=== PATIENT | female | born 1995 | race Two or more races ===

== ENCOUNTER 2016-07-03 21:34 | Emergency (ER) | payer BC ==
[2016-07-03 21:42] VITALS: BP 133/78; PULSE 93; RESP 16; TEMP 98.1; O2SAT 98
--- NOTE | 2016-07-03 22:17 | EDPHY ---
H & P Stated Complaint: R thumb crush injury 06/29; increased swelling since yesterday Time Seen by Provider: 07/03/16 22:01 HPI/ROS: HPI The patient presents with right thumb pain which has been present for the last 4 days though getting progressively worse. It is associated with edema of her distal thumb. The pain has been constant, is throbbing, does not radiate. Four days ago, she slammed her thumb in a car door. Initially the pain was manageable, however it has gotten progressively worse. She does wear acrylic nails. REVIEW OF SYSTEMS Constitutional: No fever, no chills. Skin: No rashes. PMHx: Healthy PHYSICAL General Appearance: Alert, no distress Eyes: Pupils equal and round no pallor or injection ENT, Mouth: Mucous membranes moist Respiratory: Breathing comfortably Neurological: A&O, moves all extremities Skin: Warm and dry, no rashes Musculoskeletal: Neck is supple non tender Extremities: Right thumb- distal phalanx is edematous with ecchymoses surrounding the proximal nail fold, acrylic nail with nail [place] is in place Psychiatric: Patient is oriented X 3, there is no agitation Source: Patient Exam Limitations: No limitations - Personal History LMP (Females 10-55): 1-7 Days Ago Current Tetanus/Diphtheria Vaccine: Yes Current Tetanus Diphtheria and Acellular Pertussis (TDAP): Yes - Medical/Surgical History Hx Asthma: Yes Hx Chronic Respiratory Disease: No Hx Diabetes: No Hx Cardiac Disease: No Hx Renal Disease: No Hx Cirrhosis: No Hx Alcoholism: No Hx HIV/AIDS: No Hx Splenectomy or Spleen Trauma: No Other PMH: hx childhood asthma - Social History Smoking Status: Never smoked Constitutional: Initial Vital Signs Temperature (C) 36.7 C 07/03/16 21:35 Heart Rate 93 07/03/16 21:35 Respiratory Rate 16 07/03/16 21:35 Blood Pressure 133/78 H 07/03/16 21:35 O2 Sat (%) 98 07/03/16 21:35 O2 Delivery Mode Room Air Allergies/Adverse Reactions: No Known Allergies Allergy (Unverified 07/03/16 21:42) Home Medications: Medication Instructions Recorded Cephalexin [Keflex (*)] 500 mg PO Q6H #20 cap 07/03/16 [id number] 07/03/16 Medical Decision Making Procedures: Digital block of right thumb performed using lidocaine 1% total of 3 mL was injected into the palmar surface of her right thumb just proximal to the MCP joint. Subsequently, nail bed trephination performed initially using Bovie, then transitioning to 18 gauge needle because of some smoke with Bovie. Large volume of blood drained. Patient tolerated procedure well. Differential Diagnosis: This is a 21-year-old healthy female who presents 5 days after slamming her right thumb into a car door with increased swelling and pain over the last 1 day. Differential diagnosis includes subungual hematoma, distal phalanx fracture, paronychia, finger contusion. I am not able to visualize her nail bed because of the acrylic nail in place. It has nail [place] which is gel based and cannot be removed with acetone, thus I have no way of fully examining the nail bed. I am highly suspicious of subungual hematoma, thus I will perform a digital block and trephination. Departure - Departure Disposition: Home, Routine, Self-Care Clinical Impression: Subungual hematoma Condition: Good Instructions: Subungual Hematoma (ED) Additional Instructions: Please removed the acrylic nail as soon as possible. You should do warm soaks. Return if you have any increased redness or swelling of the thumb. Prescriptions: Cephalexin [Keflex (*)] 500 mg PO Q6H #20 cap
== END 2016-07-03 22:51 | disposition home or self-care (01) ==
DX: S60.011A Contusion of right thumb without damage to nail, initial encounter (principal); J45.909 Unspecified asthma, uncomplicated; W23.0XXA Caught, crushed, jammed, or pinched between moving objects, initial encounter